=== PATIENT | male | born 1985 ===

== ENCOUNTER 2022-03-23 22:25 | Emergency (ER) | payer SELFPAY ==
[2022-03-23 22:33] VITALS: BP 148/82
== END 2022-03-24 11:00 | disposition left against medical advice (07) ==
LOC: ED 22:25
DX: F10.20 Alcohol dependence, uncomplicated (principal); Z53.21 Procedure and treatment not carried out due to patient leaving prior to being seen by health care provider; Y90.9 Presence of alcohol in blood, level not specified

== ENCOUNTER 2022-03-25 01:32 | Emergency (ER) | payer SELFPAY | END 2022-03-25 11:38 | disposition left against medical advice (07) | LOC: ED 01:32 | DX: M79.606 Pain in leg, unspecified (principal); Z53.21 Procedure and treatment not carried out due to patient leaving prior to being seen by health care provider ==

== ENCOUNTER 2022-03-29 12:51 | Emergency (ER) | payer SELFPAY ==
[2022-03-29 12:56] VITALS: BP 233/101
== END 2022-03-29 17:09 | disposition left against medical advice (07) ==
LOC: ED 12:51
DX: Z00.00 Encounter for general adult medical examination without abnormal findings (principal); Z53.21 Procedure and treatment not carried out due to patient leaving prior to being seen by health care provider
CPT/HCPCS: 93005